=== PATIENT | male | born 1995 | race Two or more races ===

== ENCOUNTER 2020-01-20 11:54 | Day surgery (SDC) | payer MEDICAID, OTHER ==
[~2020-01-20] VITALS: Ht 180.3 cm; Wt 92.9 kg
[2020-01-20] MEDS ORDERED: ONDANSETRON 2MG/ML, 2ML IVPush ONE (12:30)
[2020-01-20] MEDS: PLEASE ENTER HEIGHT AND WEIGHT MC SCH ×2 (12:30→14:05)
[2020-01-20] MEDS ORDERED: SODIUM CHLORIDE FLUSH 10ML SYR IVF ONE (12:30)
[2020-01-20 12:31] LABS: MEAN CORPUSCULAR HEMOGLOBIN 29.9 pg (27.5-34.5); MEAN CORPUSCULAR HGB CONC 33.1 g/dL (33.2-36.2); MEAN CORPUSCULAR VOLUME 90.4 fL (81-97); MEAN PLATELET VOLUME 8.7 fL (7.4-10.4); PLATELET COUNT 246 x10^3/uL (130-400); RED BLOOD COUNT 6.21 x10^6/uL (4.38-5.82); RED CELL DISTRIBUTION WIDTH 13.3 % (9.4-14.8)
[2020-01-20 12:42] LABS: ALBUMIN 4.3 g/dL (3.4-5.0); ANION GAP 8 mmol/L (5-15); CALCIUM 9.4 mg/dL (8.5-10.1); CHLORIDE 105 mmol/L (98-107)
[2020-01-20] MEDS ORDERED: ONDANSETRON 2MG/ML, 2ML ONE ×2 (12:42→16:18)
[2020-01-20] MEDS ORDERED: MORPHINE SULFATE 4 MG/ML, 1ML ONE ×2 (12:42→13:57)
[2020-01-20 12:45] LABS: BASOPHILS # (AUTO) 0.02 x10^3/uL (0-0.1); BASOPHILS % (AUTO) 0 % (0-1); EOSINOPHILS % (AUTO) 0 % (1-7); LYMPHOCYTES # (AUTO) 0.81 x10^3/uL (1-3.4); LYMPHOCYTES % (AUTO) 4 % (22-44); MD SCAN; MONOCYTES # (AUTO) 1.16 x10^3/uL (0.2-0.8); MONOCYTES % (AUTO) 6 % (2-9); NEUTROPHILS # (AUTO) 17.88 x10^3/uL (1.8-6.8); NEUTROPHILS % (AUTO) 90 % (42-75)
[2020-01-20 12:47] LABS: ALANINE AMINOTRANSFERASE 35 U/L (12-78); ALKALINE PHOSPHATASE 80 U/L (45-117); BILIRUBIN,TOTAL 2.3 mg/dL (0.2-1.0); CREATININE 1.09 mg/dL (0.7-1.3); TOTAL PROTEIN 8.1 g/dL (6.4-8.2)
[2020-01-20] MEDS: MORPHINE SULFATE 4 MG/ML, 1ML IVPush PRN ×2 (12:49→14:03)
--- NOTE | 2020-01-20 12:50 | NUR ---
[facility] SENT PIV PLACED-PATIENT MEDICATED PER EMAR FOR RLQ ABD PAIN AT 02/26 UPDATED ON ESTIMATED POC
[2020-01-20] MEDS ORDERED: OMNIPAQUE 350 MG/ML, 100ML BOTTLE ONE (13:00)
--- NOTE | 2020-01-20 13:04 | NUR ---
called ct to expedite exam Pain improved to 4/10 Updated on estimate poc REPORT TO MARTHA EISENBERG
[2020-01-20 13:19] LABS: MICROSCOPIC INDICATED
[2020-01-20] MEDS ORDERED: CEFOTETAN PMX 2GM/50ML 50 ML IV ONE (14:00)
[2020-01-20] MEDS ORDERED: SODIUM CHLORIDE 0.9% 1,000ML IVBOLUS ONE (14:00)
[2020-01-20 14:09] VITALS: BP 123/81
--- NOTE | 2020-01-20 14:18 | NUR ---
DR ABRAMS AT BEDSIDE. CT RESULTS REVIEWED AND PLAN FOR SURGERY DISCUSSED. IVF INFUSING W/O DIFFICULTY, PT MED FOR PAIN NOTED AND ANTIBIOTICS STARTED NOTED. CALL LIGHT W/I REACH. VSS. ALL CLOTHES REMOVED AND PLACED IN BELONGINGS BAG.
[2020-01-20] MEDS ORDERED: CARB200T PO (14:29)
[2020-01-20] MEDS ORDERED: MIDAZOLAM 1 MG/ML, 2ML ONE (14:59)
[2020-01-20] MEDS ORDERED: FENTANYL PF 250 MCG/5ML ONE (14:59)
[2020-01-20] MEDS ORDERED: PROPOFOL 50 ML ONE (14:59)
[2020-01-20] MEDS ORDERED: BUPIVACAINE/PF-EPI 0.25% 1:200K ONE (15:14)
[2020-01-20] MEDS ORDERED: CHLORHEXIDINE 15 ML UDC MM STA (15:16)
[2020-01-20] MEDS ORDERED: CHLORHEXIDINE 15 ML UDC ONE (15:19)
--- NOTE | 2020-01-20 15:22 | NUR ---
PT TO OR WITH TECH TRANSPORT
[2020-01-20] MEDS ORDERED: ROCURONIUM 10 MG/ML,10ML ONE (15:50)
[2020-01-20] MEDS ORDERED: DEXAMETHASONE 4 MG/ML, 1ML ONE (15:50)
[2020-01-20] MEDS ORDERED: KETOROLAC 30 MG/1 ML ONE (15:50)
[2020-01-20] MEDS ORDERED: SUCCINYLCHOLINE 20 MG/ML, 10ML ONE (16:18)
[2020-01-20] MEDS ORDERED: LABETALOL 5MG/ML, 20ML IV PRN (16:30)
[2020-01-20] MEDS ORDERED: PROMETHAZINE 25 MG/ML, 1ML IVPush PRN (16:30)
[2020-01-20] MEDS ORDERED: ONDANSETRON 2MG/ML, 2ML IVPush PRN (16:30)
[2020-01-20] MEDS ORDERED: EPHEDRINE 50 MG/ML, 1ML IM PRN (16:30)
[2020-01-20] MEDS ORDERED: OXYcodone 5 MG/5 ML ORAL.SOL UDC PO PRN (16:30)
[2020-01-20] MEDS ORDERED: DIPHENHYDRAMINE 50 MG/ML, 1ML IVPush PRN (16:30)
[2020-01-20] MEDS ORDERED: ACETAMINOPHEN 325 MG TABLET PO PRN (16:30)
[2020-01-20] MEDS ORDERED: DIAZEPAM 5 MG/ML, 2ML IVPush PRN (16:30)
[2020-01-20] MEDS ORDERED: EPHEDRINE 50 MG/ML, 1ML IVPush PRN (16:30)
[2020-01-20] MEDS ORDERED: MEPERIDINE/PF 25MG/0.5ML IVPush PRN (16:30)
[2020-01-20] MEDS ORDERED: HYDROmorphone 1 MG/ML, 1ML INJ IVPush PRN (16:30)
[2020-01-20] MEDS ORDERED: FENTANYL PF 100 MCG/2ML IV PRN (16:30)
== END 2020-01-20 18:15 | disposition home or self-care (01) ==
LOC: OR 11:54 → ED 14:27 → UNDOADMOB 14:42 → EDIP 14:42 → ED 18:15 → OR 18:15
PROVIDERS: ATTEND Emergency Medicine
DX: K35.80 Unspecified acute appendicitis (principal); Z79.899 Other long term (current) drug therapy; Z91.010 Allergy to peanuts
CPT/HCPCS: 36415; 44970; 74177; 80053; 81001; 83605; 84145; 85025; 87040; 87086; 88304; 96365; 96375; 96376; 99285; C1729; J0330; J1100; J1885; J2250; J2270; J2405; J2704; J3010; J3490; J7030; Q9967